=== PATIENT | female | born 1935 | race Caucasian/White ===

== ENCOUNTER 2017-08-06 09:24 | Inpatient (IN) | payer MEDICARE, OTHER ==
[~2017-08-06] VITALS: Ht 170.2 cm; Wt 84.4 kg
[~2017-08-06 09:24] MED LIST: ALBU8.5H8 IH; ALPR-324 PO; CARV-49 PO; CHOL2000 PO; ENAL10TA78 PO; FURO20TA4 PO; HYDR-565 PO; HYDR25TA4 PO; LEVO150T8 PO; METO10TA3 PO; OMEG10006 PO; ONDA4TAB9 SL; PANT-47 PO; POTA10TA36 PO; PRAV20TA4 PO; TEMA15CA5 PO; VITA400C21 PO; WARF4TAB69 PO; [UNRECOGNIZED DRUG - CODE] PO
[2017-08-06 09:58] LABS: BASOPHILS % (AUTO) 0.3 % (0-1); EOSINOPHILS # (AUTO) 0.3 X10'3 (0-0.9); EOSINOPHILS % (AUTO) 5.4 % (0-6); HEMATOCRIT 41.6 % (35.0-45.0); LYMPHOCYTES # (AUTO) 1.4 X10'3 (1.1-4.8); LYMPHOCYTES % (AUTO) 22.4 % (21-51); MEAN CORPUSCULAR HEMOGLOBIN 32.1 PG (27.0-31.0); MEAN CORPUSCULAR HGB CONC 33.7 % (33.0-36.5); MEAN CORPUSCULAR VOLUME 95.1 FL (78-98); MEAN PLATELET VOLUME 8.1 FL (7.4-10.4); MONOCYTES # (AUTO) 0.6 X10'3 (0-0.9); MONOCYTES % (AUTO) 9.4 % (2-12); NEUTROPHILS # (AUTO) 3.8 X10'3 (1.8-7.7); NEUTROPHILS % (AUTO) 62.5 % (42-75); PLATELET COUNT 186 X10'3 (140-440); RED BLOOD COUNT 4.37 X10'6 (4.20-5.60); RED CELL DISTRIBUTION WIDTH 15.7 % (11.5-14.5); WHITE BLOOD COUNT 6.1 X10'3 (4.5-11.0)
[2017-08-06] MEDS ORDERED: furosemide 10 MG/1 ML 10ml inj IV ONE (10:05)
[2017-08-06 10:11] LABS: INR 1.1 INR; PARTIAL THROMBOPLASTIN TIME 28 SECONDS (22-32); PROTHROMBIN TIME 11.8 SECONDS (9.0-12.0)
[2017-08-06 10:15] LABS: ALANINE AMINOTRANSFERASE 18 U/L (12-78); ALBUMIN 3.6 G/DL (3.4-5.0); ALBUMIN/GLOBULIN RATIO 0.7 (1.1-1.5); ALKALINE PHOSPHATASE 106 IU/L (46-116); ANION GAP 4 (8-16); ASPARTATE AMINO TRANSFERASE 31 U/L (10-37); BILIRUBIN,TOTAL 0.7 MG/DL (0.1-1.0); BLOOD UREA NITROGEN 15 MG/DL (7-18); BUN/CREATININE RATIO 20.5 (6.6-38.0); CALCIUM 8.7 MG/DL (8.5-10.1); CHLORIDE 98 MMOL/L (99-107); CREATININE 0.73 MG/DL (0.40-0.90); GLUCOSE 128 MG/DL (70-104); POTASSIUM 3.2 MMOL/L (3.5-5.1); SODIUM 138 MMOL/L (135-145); TOTAL PROTEIN 8.7 G/DL (6.4-8.2); eGFR 77 ML/MIN
[2017-08-06] MEDS ORDERED: ALPRAZolam 0.25mg tablet PO ONE (11:05)
[2017-08-06] MEDS ORDERED: CefTRIAXone 2gm/D5W 50ml 50 ML IV ONE (11:40)
[2017-08-06] MEDS ORDERED: ATOR40TA71 PO (12:51)
[2017-08-06] MEDS ORDERED: CLOP75TA15 PO (12:51)
[2017-08-06] MEDS ORDERED: PANT20TA3 PO (12:51)
[2017-08-06] MEDS ORDERED: IPRA3AMP9 IH (12:51)
[2017-08-06] MEDS ORDERED: HYDR-565 PO (12:51)
[2017-08-06] MEDS ORDERED: TRAZ-146 PO (12:51)
[2017-08-06] MEDS ORDERED: FURO40TA4 PO (12:51)
[2017-08-06] MEDS ORDERED: ASPI81TA52 PO (12:51)
[2017-08-06] MEDS ORDERED: LEVA0.6319 NEB (12:51)
[2017-08-06] MEDS ORDERED: LEVO125T8 PO (12:51)
[2017-08-06] MEDS ORDERED: CARV-50 PO (12:51)
[2017-08-06] MEDS ORDERED: BUDE0.5A11 NEB (12:51)
[2017-08-06] MEDS ORDERED: BUME1TAB4 PO (12:51)
[2017-08-06] MEDS ORDERED: ALPR-385 PO (12:51)
[2017-08-06] MEDS ORDERED: diphenhydrAMINE 50 mg/ml inj IV PRN (16:00)
[2017-08-06] MEDS ORDERED: acetaminophen 325mg tablet PO PRN (16:00)
[2017-08-06] MEDS ORDERED: bisacodyl 10mg suppository rectal RC PRN (16:00)
[2017-08-06] MEDS ORDERED: acetaminophen 650mg rectal suppository RC PRN (16:00)
[2017-08-06] MEDS ORDERED: HYDROmorphone inj. 0.5 MG/0.5 ML DISP.SYRIN IV PRN ×3 (16:00→22:10)
[2017-08-06] MEDS ORDERED: diphenhydrAMINE 25mg capsule PO PRN (16:00)
[2017-08-06] MEDS ORDERED: mag hydrox/Alum hydrox/simeth 30ml oral suspension PO PRN (16:00)
[2017-08-06] MEDS ORDERED: magnesium hydroxide 30ml (MOM) UD suspension PO PRN (16:00)
[2017-08-06] MEDS ORDERED: metoclopramide 5 mg/ml inj IV PRN (16:00)
[2017-08-06] MEDS ORDERED: HYDROcodone/acetaminophen 10/325mg tab PO PRN (16:00)
[2017-08-06] MEDS ORDERED: morphine 4 MG/ML inj SYRINge IV PRN ×2 (16:00)
[2017-08-06] MEDS ORDERED: ondansetron/PF 4mg/2ml inj IV PRN (16:00)
[2017-08-06] MEDS ORDERED: potassium Cl 20 mEq SR tablet PO PRN (16:05)
[2017-08-06] MEDS ORDERED: CefTRIAXone/D5W-Rocephin 1gm 50 ML IV SCH (16:05)
[2017-08-06] MEDS ORDERED: potassium Cl 40MEQ/NS 500ml 500 ML IV PRN ×2 (16:05)
[2017-08-06] MEDS: ipratropium/albuterol 3ml nebule IH SCH ×2 (17:15→23:07)
[2017-08-06 17:22] LABS: HEMOGLOBIN A1C 5.6 % (4.5-6.2)
[2017-08-06] MEDS: ALPRAZolam 0.5mg tablet PO SCH (17:22)
[2017-08-06] MEDS: azithromycin/NS 500mg/250ml 250 ML IV SCH (17:22)
[2017-08-06] MEDS: furosemide 40mg/4ml inj IV SCH (17:25)
[2017-08-06] MEDS: docusate sod 100mg capsule PO SCH (20:15)
[2017-08-06] MEDS: carVEDilol 12.5mg tablet PO SCH (20:15)
[2017-08-06] MEDS: methylPREDNISolone sod succ 125mg/2ml vial IV SCH (20:18)
[2017-08-06] MEDS: heparin, porcine 5000 units/ml vial SQ SCH (20:20)
[2017-08-06 21:00] VITALS: BP 111/72
[2017-08-06] MEDS ORDERED: HYDROmorphone 2mg tablet PO ONE (22:10)
[2017-08-06] MEDS ORDERED: ALPRAZolam 0.5mg tablet PO ONE (22:10)
[2017-08-06] MEDS: traZODone 50mg tablet PO SCH (23:13)
[2017-08-07 00:59] VITALS: BP 145/84
[2017-08-07] MEDS: potassium Cl 20 mEq SR tablet PO PRN ×3 (01:30→05:46)
[2017-08-07] MEDS ORDERED: HYDROmorphone 1 mg/ml syringe ONE ×2 (01:57→21:38)
[2017-08-07 07:00] VITALS: BP 137/86
[2017-08-07] MEDS: levoTHYROXINE 125mcg tablet PO SCH (08:00)
[2017-08-07] MEDS: aspirin 81mg tablet.DR PO SCH (08:00)
[2017-08-07] MEDS: metoclopramide 10mg tablet PO SCH (08:00)
[2017-08-07] MEDS: pantoprazole 40mg Tablet.DR PO SCH (08:01)
[2017-08-07] MEDS: furosemide 40mg/4ml inj IV SCH (08:01)
[2017-08-07] MEDS: methylPREDNISolone sod succ 125mg/2ml vial IV SCH ×2 (08:01→20:35)
[2017-08-07] MEDS: carVEDilol 12.5mg tablet PO SCH ×2 (08:01→20:38)
[2017-08-07] MEDS: docusate sod 100mg capsule PO SCH ×2 (08:01→20:34)
[2017-08-07] MEDS: atorvastatin 20mg tablet PO SCH (08:01)
[2017-08-07] MEDS: clopidogrel 75mg tablet PO SCH (08:01)
[2017-08-07] MEDS: heparin, porcine 5000 units/ml vial SQ SCH ×2 (08:02→20:34)
[2017-08-07] MEDS: HYDROcodone/acetaminophen 5mg/325mg tablet PO PRN ×3 (08:02→17:13)
[2017-08-07] MEDS: CefTRIAXone/D5W-Rocephin 1gm 50 ML IV SCH (08:03)
[2017-08-07] MEDS: ALPRAZolam 0.5mg tablet PO SCH ×2 (08:07→17:09)
[2017-08-07] MEDS: ipratropium/albuterol 3ml nebule IH SCH ×3 (09:31→21:37)
[2017-08-07] MEDS: azithromycin/NS 500mg/250ml 250 ML IV SCH (09:35)
[2017-08-07 09:56] LABS: ALANINE AMINOTRANSFERASE 17 U/L (12-78); ALBUMIN 3.1 G/DL (3.4-5.0); ALBUMIN/GLOBULIN RATIO 0.6 (1.1-1.5); ALKALINE PHOSPHATASE 96 IU/L (46-116); ANION GAP 7 (8-16); ASPARTATE AMINO TRANSFERASE 27 U/L (10-37); BILIRUBIN,TOTAL 0.5 MG/DL (0.1-1.0); BLOOD UREA NITROGEN 15 MG/DL (7-18); CHLORIDE 99 MMOL/L (99-107); CREATININE 0.94 MG/DL (0.40-0.90); GLUCOSE 188 MG/DL (70-104); SODIUM 141 MMOL/L (135-145); TOTAL CARBON DIOXIDE 35.4 MMOL/L (24-32); TOTAL PROTEIN 7.9 G/DL (6.4-8.2); eGFR 57 ML/MIN
[2017-08-07 11:00] VITALS: BP 108/57
[2017-08-07] MEDS: nitroGLYCERIN 0.1mg/hour patch TD SCH (11:23)
[2017-08-07 16:15] VITALS: BP 214/159
[2017-08-07 17:18] VITALS: BP 154/64
[2017-08-07 18:00] VITALS: BP 120/70
[2017-08-07] MEDS: traZODone 50mg tablet PO SCH (20:54)
[2017-08-08] VITALS: BP 132/70
[2017-08-08] MEDS ORDERED: HYDROmorphone 1 mg/ml syringe ONE (01:56)
[2017-08-08] MEDS: temazepam 15mg capsule PO PRN (02:24)
[2017-08-08] MEDS: HYDROcodone/acetaminophen 5mg/325mg tablet PO PRN (04:30)
[2017-08-08] MEDS: ipratropium/albuterol 3ml nebule IH SCH ×3 (07:07→20:58)
[2017-08-08 07:17] VITALS: BP 157/74
[2017-08-08] MEDS: CefTRIAXone/D5W-Rocephin 1gm 50 ML IV SCH (07:47)
[2017-08-08] MEDS: ALPRAZolam 0.5mg tablet PO SCH ×2 (07:48→16:14)
[2017-08-08] MEDS: clopidogrel 75mg tablet PO SCH (07:48)
[2017-08-08] MEDS: levoTHYROXINE 125mcg tablet PO SCH (07:48)
[2017-08-08] MEDS: carVEDilol 12.5mg tablet PO SCH ×2 (07:48→20:20)
[2017-08-08] MEDS: aspirin 81mg tablet.DR PO SCH (07:48)
[2017-08-08] MEDS: nitroGLYCERIN 0.1mg/hour patch TD SCH (07:48)
[2017-08-08] MEDS: atorvastatin 20mg tablet PO SCH (07:48)
[2017-08-08] MEDS: methylPREDNISolone sod succ 125mg/2ml vial IV SCH ×2 (07:49→20:20)
[2017-08-08] MEDS: docusate sod 100mg capsule PO SCH ×2 (07:49→20:21)
[2017-08-08] MEDS: metoclopramide 10mg tablet PO SCH (07:49)
[2017-08-08] MEDS: heparin, porcine 5000 units/ml vial SQ SCH ×2 (07:49→20:20)
[2017-08-08] MEDS: pantoprazole 40mg Tablet.DR PO SCH (07:49)
[2017-08-08] MEDS: furosemide 40mg/4ml inj IV SCH (07:50)
[2017-08-08] MEDS: emollient combination-Eucerin 250 ML LOTION TP SCH (07:50)
[2017-08-08] MEDS: azithromycin/NS 500mg/250ml 250 ML IV SCH (08:33)
[2017-08-08 12:52] VITALS: BP 151/73
[2017-08-08 18:00] VITALS: BP 129/60
[2017-08-08] MEDS: traZODone 50mg tablet PO SCH (20:21)
[2017-08-08] MEDS: lactobacillus rhamnosus 10,000 MMU CELLS/CAPSULE PO SCH (20:21)
[2017-08-09] VITALS: BP 151/87
[2017-08-09] MEDS: temazepam 15mg capsule PO PRN ×2 (01:41→22:16)
[2017-08-09] MEDS: HYDROcodone/acetaminophen 5mg/325mg tablet PO PRN ×3 (01:46→20:00)
[2017-08-09 05:43] LABS: CLARITY,URINE CLEAR (Clear); COLOR,URINE YELLOW (Yellow); GLUCOSE, URINE NEGATIVE (Neg); KETONES,URINE NEGATIVE (Neg); LEUKOCYTE ESTERASE ,URINE NEGATIVE (Neg); NITRITES, URINE NEGATIVE (Neg); OCCULT BLOOD,URINE NEGATIVE (Neg); PROTEIN,URINE NEGATIVE (Neg); UROBILINOGEN,URINE 0.2 E.U/dL (0.2-1.0)
[2017-08-09 05:44] LABS: UA COLLECTION TYPE CLN CATCH MIDSTREAM
[2017-08-09 07:29] VITALS: BP 172/109
[2017-08-09 07:30] LABS: BASOPHILS % (AUTO) 0.2 % (0-1); EOSINOPHILS % (AUTO) 0.3 % (0-6); HEMATOCRIT 42.1 % (35.0-45.0); HEMOGLOBIN 14.1 g/dl (12.0-16.0); LYMPHOCYTES # (AUTO) 1.2 X10'3 (1.1-4.8); LYMPHOCYTES % (AUTO) 13.6 % (21-51); MEAN CORPUSCULAR HEMOGLOBIN 31.9 PG (27.0-31.0); MEAN CORPUSCULAR HGB CONC 33.4 % (33.0-36.5); MEAN CORPUSCULAR VOLUME 95.6 FL (78-98); MEAN PLATELET VOLUME 8.4 FL (7.4-10.4); MONOCYTES # (AUTO) 0.4 X10'3 (0-0.9); MONOCYTES % (AUTO) 4.2 % (2-12); NEUTROPHILS % (AUTO) 81.7 % (42-75); PLATELET COUNT 197 X10'3 (140-440); RED CELL DISTRIBUTION WIDTH 15.5 % (11.5-14.5); WHITE BLOOD COUNT 8.6 X10'3 (4.5-11.0)
[2017-08-09 07:44] LABS: ALANINE AMINOTRANSFERASE 27 U/L (12-78); ALBUMIN 2.8 G/DL (3.4-5.0); ALBUMIN/GLOBULIN RATIO 0.6 (1.1-1.5); ALKALINE PHOSPHATASE 94 IU/L (46-116); ANION GAP 4 (8-16); ASPARTATE AMINO TRANSFERASE 32 U/L (10-37); BILIRUBIN,TOTAL 0.3 MG/DL (0.1-1.0); BLOOD UREA NITROGEN 26 MG/DL (7-18); BUN/CREATININE RATIO 28.9 (6.6-38.0); CALCIUM 8.4 MG/DL (8.5-10.1); CHLORIDE 101 MMOL/L (99-107); GLUCOSE 148 MG/DL (70-104); POTASSIUM 3.8 MMOL/L (3.5-5.1); SODIUM 141 MMOL/L (135-145); TOTAL CARBON DIOXIDE 35.9 MMOL/L (24-32); TOTAL PROTEIN 7.4 G/DL (6.4-8.2); eGFR 60 ML/MIN
[2017-08-09] MEDS: levoTHYROXINE 125mcg tablet PO SCH (08:00)
[2017-08-09] MEDS: furosemide 40mg/4ml inj IV SCH (09:24)
[2017-08-09] MEDS: methylPREDNISolone sod succ 125mg/2ml vial IV SCH ×2 (09:25→19:55)
[2017-08-09] MEDS: docusate sod 100mg capsule PO SCH ×2 (09:25→20:01)
[2017-08-09] MEDS: CefTRIAXone/D5W-Rocephin 1gm 50 ML IV SCH (09:25)
[2017-08-09] MEDS: aspirin 81mg tablet.DR PO SCH (09:26)
[2017-08-09] MEDS: lactobacillus rhamnosus 10,000 MMU CELLS/CAPSULE PO SCH ×2 (09:26→20:00)
[2017-08-09] MEDS: carVEDilol 12.5mg tablet PO SCH ×2 (09:26→19:58)
[2017-08-09] MEDS: atorvastatin 20mg tablet PO SCH (09:27)
[2017-08-09] MEDS: clopidogrel 75mg tablet PO SCH (09:28)
[2017-08-09] MEDS: pantoprazole 40mg Tablet.DR PO SCH (09:28)
[2017-08-09] MEDS: metoclopramide 10mg tablet PO SCH (09:29)
[2017-08-09] MEDS: azithromycin 250mg tablet PO SCH (09:30)
[2017-08-09] MEDS: heparin, porcine 5000 units/ml vial SQ SCH (09:35)
[2017-08-09] MEDS: lisinopril 20mg tablet PO SCH (09:36)
[2017-08-09] MEDS: nitroGLYCERIN 0.1mg/hour patch TD SCH (09:36)
[2017-08-09] MEDS: ALPRAZolam 0.5mg tablet PO SCH ×2 (09:37→17:16)
[2017-08-09] MEDS: emollient combination-Eucerin 250 ML LOTION TP SCH (09:52)
[2017-08-09] MEDS: ipratropium/albuterol 3ml nebule IH SCH ×3 (10:14→23:11)
[2017-08-09 11:30] VITALS: BP 112/64
[2017-08-09 18:00] VITALS: BP 108/65
[2017-08-09] MEDS: enoxaparin 80mg/0.8ml syringe SUBCUT SCH (19:56)
[2017-08-09] MEDS: cloNIDine 0.1 mg tablet PO SCH (19:59)
[2017-08-09] MEDS: traZODone 50mg tablet PO SCH (22:08)
[2017-08-10] VITALS: BP 110/62
[2017-08-10] MEDS: HYDROcodone/acetaminophen 5mg/325mg tablet PO PRN ×2 (04:29→14:45)
[2017-08-10] MEDS: ipratropium/albuterol 3ml nebule IH SCH (07:25)
[2017-08-10 07:39] VITALS: BP 147/78
[2017-08-10] MEDS: furosemide 40mg/4ml inj IV SCH (08:49)
[2017-08-10] MEDS: cloNIDine 0.1 mg tablet PO SCH (08:50)
[2017-08-10] MEDS: CefTRIAXone/D5W-Rocephin 1gm 50 ML IV SCH (08:50)
[2017-08-10] MEDS: methylPREDNISolone sod succ 125mg/2ml vial IV SCH (08:50)
[2017-08-10] MEDS: aspirin 81mg tablet.DR PO SCH (08:51)
[2017-08-10] MEDS: docusate sod 100mg capsule PO SCH (08:51)
[2017-08-10] MEDS: lactobacillus rhamnosus 10,000 MMU CELLS/CAPSULE PO SCH (08:51)
[2017-08-10] MEDS: carVEDilol 12.5mg tablet PO SCH (08:51)
[2017-08-10] MEDS: atorvastatin 20mg tablet PO SCH (08:51)
[2017-08-10] MEDS: clopidogrel 75mg tablet PO SCH (08:52)
[2017-08-10] MEDS: metoclopramide 10mg tablet PO SCH (08:52)
[2017-08-10] MEDS: azithromycin 250mg tablet PO SCH (08:52)
[2017-08-10] MEDS: lisinopril 20mg tablet PO SCH (08:52)
[2017-08-10] MEDS: pantoprazole 40mg Tablet.DR PO SCH (08:52)
[2017-08-10] MEDS: emollient combination-Eucerin 250 ML LOTION TP SCH (08:53)
[2017-08-10] MEDS: nitroGLYCERIN 0.1mg/hour patch TD SCH (08:53)
[2017-08-10] MEDS: enoxaparin 80mg/0.8ml syringe SUBCUT SCH (08:53)
[2017-08-10] MEDS: ALPRAZolam 0.5mg tablet PO SCH (08:54)
[2017-08-10] MEDS: levoTHYROXINE 125mcg tablet PO SCH (08:55)
[2017-08-10 11:00] VITALS: BP 131/71
== END 2017-08-10 15:30 | disposition home or self-care (01) | DRG 291 ==
LOC: ER 09:25 → ED HOLD 15:59 → SUR 3N 20:50
PROVIDERS: ADMIT Family Medicine; ATTEND Family Medicine
DX: I50.23 Acute on chronic systolic (congestive) heart failure (principal); J96.21 Acute and chronic respiratory failure with hypoxia; J44.1 Chronic obstructive pulmonary disease with (acute) exacerbation; L03.115 Cellulitis of right lower limb; E87.6 Hypokalemia; K31.9 Disease of stomach and duodenum, unspecified; L30.9 Dermatitis, unspecified; Z99.81 Dependence on supplemental oxygen; Z88.1 Allergy status to other antibiotic agents; Z88.8 Allergy status to other drugs, medicaments and biological substances; Z79.899 Other long term (current) drug therapy; Z79.01 Long term (current) use of anticoagulants; Z82.49 Family history of ischemic heart disease and other diseases of the circulatory system; Z80.9 Family history of malignant neoplasm, unspecified
CPT/HCPCS: 36415; 71045; 80053; 81003; 83036; 83735; 83880; 84484; 85025; 85610; 85730; 87070; 93005; 94640; 94760; 96365; 96375; 99285; J0456; J0696; J1170; J1644; J1650; J1940; J2930; J7030; J8597; Q0163

== ENCOUNTER 2017-08-12 07:23 | Emergency (ER) | payer MEDICARE, OTHER ==
[~2017-08-12] VITALS: Ht 170.2 cm; Wt 89.0 kg
[~2017-08-12 07:23] MED LIST changes: -ALBU8.5H8 IH; -ALPR-324 PO; +ALPR-385 PO; +ASPI81TA52 PO; +ATOR40TA71 PO; +BUDE0.5A11 NEB; -CARV-49 PO; +CARV-50 PO; -CHOL2000 PO; +CLOP75TA15 PO; -ENAL10TA78 PO; -FURO20TA4 PO; -HYDR25TA4 PO; +IPRA3AMP9 IH; +LEVA0.6319 NEB; +LEVO125T8 PO; -LEVO150T8 PO; -OMEG10006 PO; -ONDA4TAB9 SL; -PANT-47 PO; -POTA10TA36 PO; -PRAV20TA4 PO; -TEMA15CA5 PO; +TRAZ-146 PO; -VITA400C21 PO; -WARF4TAB69 PO; -[UNRECOGNIZED DRUG - CODE] PO
[2017-08-12] MEDS ORDERED: aspirin 81mg tab.chew PO ONE (07:55)
[2017-08-12 08:25] LABS: BASOPHILS % (AUTO) 0.2 % (0-1); EOSINOPHILS # (AUTO) 0.2 X10'3 (0-0.9); EOSINOPHILS % (AUTO) 2.4 % (0-6); HEMOGLOBIN 13.6 g/dl (12.0-16.0); LYMPHOCYTES # (AUTO) 1.8 X10'3 (1.1-4.8); LYMPHOCYTES % (AUTO) 23.3 % (21-51); MEAN CORPUSCULAR HEMOGLOBIN 32.2 PG (27.0-31.0); MEAN CORPUSCULAR HGB CONC 34.1 % (33.0-36.5); MEAN CORPUSCULAR VOLUME 94.7 FL (78-98); MEAN PLATELET VOLUME 8.3 FL (7.4-10.4); MONOCYTES # (AUTO) 0.8 X10'3 (0-0.9); MONOCYTES % (AUTO) 10.9 % (2-12); NEUTROPHILS # (AUTO) 4.8 X10'3 (1.8-7.7); NEUTROPHILS % (AUTO) 63.2 % (42-75); PLATELET COUNT 203 X10'3 (140-440); RED BLOOD COUNT 4.22 X10'6 (4.20-5.60); WHITE BLOOD COUNT 7.6 X10'3 (4.5-11.0)
[2017-08-12 08:43] LABS: ALANINE AMINOTRANSFERASE 65 U/L (12-78); ALBUMIN 3.1 G/DL (3.4-5.0); ALBUMIN/GLOBULIN RATIO 0.7 (1.1-1.5); ALKALINE PHOSPHATASE 95 IU/L (46-116); ANION GAP 5 (8-16); ASPARTATE AMINO TRANSFERASE 63 U/L (10-37); BILIRUBIN,TOTAL 0.3 MG/DL (0.1-1.0); BLOOD UREA NITROGEN 35 MG/DL (7-18); BUN/CREATININE RATIO 38.9 (6.6-38.0); CALCIUM 8.3 MG/DL (8.5-10.1); CHLORIDE 99 MMOL/L (99-107); GLUCOSE 137 MG/DL (70-104); POTASSIUM 3.5 MMOL/L (3.5-5.1); SODIUM 141 MMOL/L (135-145); TOTAL CARBON DIOXIDE 37.3 MMOL/L (24-32); TOTAL PROTEIN 7.4 G/DL (6.4-8.2); eGFR 60 ML/MIN
[2017-08-12 08:49] LABS: MAGNESIUM 2.2 MG/DL (1.5-2.4)
[2017-08-12 11:15] VITALS: BP 138/70
== END 2017-08-12 12:27 | disposition home or self-care (01) ==
LOC: ER 07:23
DX: R06.02 Shortness of breath (principal); I70.0 Atherosclerosis of aorta; I51.7 Cardiomegaly; J90 Pleural effusion, not elsewhere classified; I48.91 Unspecified atrial fibrillation; I50.9 Heart failure, unspecified; J44.9 Chronic obstructive pulmonary disease, unspecified; Z88.1 Allergy status to other antibiotic agents; Z79.82 Long term (current) use of aspirin; Z79.899 Other long term (current) drug therapy
CPT/HCPCS: 36415; 71045; 80053; 83735; 83880; 84484; 85025; 93005; 99285

== ENCOUNTER 2017-10-28 08:30 | Emergency (ER) | payer MEDICARE ==
[~2017-10-28] VITALS: Ht 170.2 cm; Wt 9.1 kg
[~2017-10-28 08:30] MED LIST changes: -TRAZ-146 PO; +TRAZ-219 PO
[2017-10-28] MEDS ORDERED: methylPREDNISolone sod succ 125mg/2ml vial IV ONE (08:50)
[2017-10-28] MEDS ORDERED: normal saline 1000ML IV soln IVB ONE (08:50)
[2017-10-28] MEDS ORDERED: furosemide 10 MG/1 ML 10ml inj IV ONE (08:50)
[2017-10-28] MEDS ORDERED: ipratropium/albuterol 3ml nebule NEB ONE (08:50)
[2017-10-28] MEDS ORDERED: verapamil 2.5 mg/ml inj IV ONE (09:05)
[2017-10-28 09:15] LABS: ABG BASE EXCESS 6.7 mmol/L (-2.0-3.0); ABG HCO3 32.1 mmol/L (22.0-26.0); ABG OXYGEN SATURATION 96.9 % (95-98); ABG PCO2 (T) 48.9 mmHg (32.0-45.0); ABG PH (T) 7.435 (7.350-7.450); ABG PO2 (T) 89.4 mmHg (83-108); ALLEN'S TEST Positive; FCOHb 1.8 % (0.5-1.5); FLOW 2 L/min; FO2Hb 95.2 % (94-100); RESPIRATORY RATE (OBSERVED) 20 b/min; TOTAL HEMOGLOBIN 13.7 G/dl (12.0-16.0)
[2017-10-28 09:20] LABS: BASOPHILS % (AUTO) 0.5 % (0-1); EOSINOPHILS # (AUTO) 0.2 X10'3 (0-0.9); EOSINOPHILS % (AUTO) 3.6 % (0-6); HEMATOCRIT 42.1 % (35.0-45.0); LYMPHOCYTES # (AUTO) 1.3 X10'3 (1.1-4.8); LYMPHOCYTES % (AUTO) 20.6 % (21-51); MEAN CORPUSCULAR HEMOGLOBIN 31.6 PG (27.0-31.0); MEAN CORPUSCULAR HGB CONC 33.4 % (33.0-36.5); MEAN CORPUSCULAR VOLUME 94.8 FL (78-98); MEAN PLATELET VOLUME 8.9 FL (7.4-10.4); MONOCYTES # (AUTO) 0.6 X10'3 (0-0.9); MONOCYTES % (AUTO) 9.6 % (2-12); NEUTROPHILS # (AUTO) 4.3 X10'3 (1.8-7.7); NEUTROPHILS % (AUTO) 65.7 % (42-75); PLATELET COUNT 175 X10'3 (140-440); RED BLOOD COUNT 4.44 X10'6 (4.20-5.60); RED CELL DISTRIBUTION WIDTH 15.4 % (11.5-14.5); WHITE BLOOD COUNT 6.5 X10'3 (4.5-11.0)
[2017-10-28 10:08] LABS: ALANINE AMINOTRANSFERASE 15 U/L (12-78); ALBUMIN 3.4 G/DL (3.4-5.0); ALBUMIN/GLOBULIN RATIO 0.7 (1.1-1.5); ALKALINE PHOSPHATASE 98 IU/L (46-116); ANION GAP 6 (8-16); ASPARTATE AMINO TRANSFERASE 26 U/L (10-37); BILIRUBIN,TOTAL 0.9 MG/DL (0.1-1.0); BLOOD UREA NITROGEN 17 MG/DL (7-18); BUN/CREATININE RATIO 22.4 (6.6-38.0); CALCIUM 8.9 MG/DL (8.5-10.1); CHLORIDE 99 MMOL/L (99-107); CREATININE 0.76 MG/DL (0.40-0.90); GLUCOSE 128 MG/DL (70-104); POTASSIUM 3.2 MMOL/L (3.5-5.1); SODIUM 142 MMOL/L (135-145); eGFR 73 ML/MIN
[2017-10-28] MEDS ORDERED: PRED20TA PO (10:52)
[2017-10-28] MEDS ORDERED: GUAI120015 PO (10:53)
[2017-10-28] MEDS ORDERED: CEPH-571 PO (11:12)
[2017-10-28 12:16] VITALS: BP 135/55
== END 2017-10-28 12:19 | disposition home or self-care (01) ==
LOC: ER 08:31
DX: J44.1 Chronic obstructive pulmonary disease with (acute) exacerbation (principal); I48.91 Unspecified atrial fibrillation; R60.9 Edema, unspecified; L03.116 Cellulitis of left lower limb; L03.115 Cellulitis of right lower limb; R00.0 Tachycardia, unspecified; I11.0 Hypertensive heart disease with heart failure; I50.9 Heart failure, unspecified; F19.10 Other psychoactive substance abuse, uncomplicated; Z88.1 Allergy status to other antibiotic agents; Z79.82 Long term (current) use of aspirin; Z79.899 Other long term (current) drug therapy; Z79.01 Long term (current) use of anticoagulants; Z99.81 Dependence on supplemental oxygen; Z72.0 Tobacco use
CPT/HCPCS: 36415; 36600; 71045; 80053; 82803; 83605; 83880; 84145; 84484; 85018; 85025; 87040; 93005; 94640; 94760; 96374; 96375; 99285; J1940; J2930; J7030

== ENCOUNTER 2018-04-07 13:51 | Emergency (ER) | payer MEDICARE, OTHER ==
[~2018-04-07] VITALS: Ht 170.2 cm; Wt 99.0 kg
[~2018-04-07 13:51] MED LIST changes: -ALPR-385 PO; -ASPI81TA52 PO; +ATR0.5NEB NEB; -BUDE0.5A11 NEB; -CARV-50 PO; +CARV3.122 PO; -CLOP75TA15 PO; +DABI150C PO; +DET2LAC PO; +FLUT1AER PO; +FURO40TA4 PO; +HYDR-4383 PO; -HYDR-565 PO; -IPRA3AMP9 IH; -LEVA0.6319 NEB; +LEVO100T PO; -LEVO125T8 PO; +LEVO25TA7 PO; +LORA0.5T PO; -METO10TA3 PO; +OMEP40CA37 PO; +POTA10TA19 PO; +TEMA15CA5 PO; +[UNRECOGNIZED DRUG - CODE] NEB
[2018-04-07] MEDS ORDERED: ipratropium/albuterol 3ml nebule NEB ONE (14:15)
[2018-04-07] MEDS ORDERED: methylPREDNISolone sod succ 125mg/2ml vial IV ONE (14:15)
[2018-04-07] MEDS ORDERED: albuterol 2.5 MG/3 ML nebule NEB ONE ×2 (14:15→16:35)
[2018-04-07 14:47] LABS: BASOPHILS % (AUTO) 0.1 % (0-1); EOSINOPHILS # (AUTO) 0.1 X10'3 (0-0.9); HEMATOCRIT 39.2 % (35.0-45.0); HEMOGLOBIN 12.9 g/dl (12.0-16.0); LYMPHOCYTES # (AUTO) 1.2 X10'3 (1.1-4.8); LYMPHOCYTES % (AUTO) 15.2 % (21-51); MEAN CORPUSCULAR HEMOGLOBIN 30.5 PG (27.0-31.0); MEAN CORPUSCULAR HGB CONC 33.1 % (33.0-36.5); MEAN CORPUSCULAR VOLUME 92.1 FL (78-98); MEAN PLATELET VOLUME 8.2 FL (7.4-10.4); MONOCYTES # (AUTO) 0.8 X10'3 (0-0.9); NEUTROPHILS # (AUTO) 5.7 X10'3 (1.8-7.7); NEUTROPHILS % (AUTO) 73.7 % (42-75); PLATELET COUNT 140 X10'3 (140-440); RED BLOOD COUNT 4.25 X10'6 (4.20-5.60); RED CELL DISTRIBUTION WIDTH 15.2 % (11.5-14.5); WHITE BLOOD COUNT 7.7 X10'3 (4.5-11.0)
[2018-04-07 15:02] LABS: ALANINE AMINOTRANSFERASE 27 U/L (12-78); ALBUMIN 2.9 G/DL (3.4-5.0); ALBUMIN/GLOBULIN RATIO 0.5 (1.1-1.5); ALKALINE PHOSPHATASE 114 IU/L (46-116); ANION GAP 4 (8-16); ASPARTATE AMINO TRANSFERASE 36 U/L (10-37); BILIRUBIN,TOTAL 0.7 MG/DL (0.1-1.0); BLOOD UREA NITROGEN 20 MG/DL (7-18); CALCIUM 8.5 MG/DL (8.5-10.1); CHLORIDE 97 MMOL/L (99-107); CREATININE 0.74 MG/DL (0.40-0.90); GLUCOSE 125 MG/DL (70-104); SODIUM 137 MMOL/L (135-145); TOTAL CARBON DIOXIDE 35.8 MMOL/L (24-32); TOTAL PROTEIN 8.2 G/DL (6.4-8.2); eGFR 75 ML/MIN
[2018-04-07 15:03] LABS: INR 1.3 INR; PARTIAL THROMBOPLASTIN TIME 36 SECONDS (22-32); PROTHROMBIN TIME 12.6 SECONDS (9.0-12.0)
[2018-04-07] MEDS ORDERED: iohexol 350MG/ML 100ml bottle IV ONE (15:08)
[2018-04-07 15:16] LABS: D-DIMER 3.49 MG/L FEU (0-0.50)
--- NOTE | 2018-04-07 15:18 | NUR ---
PT TO CT
[2018-04-07 16:24] VITALS: BP 105/62
--- NOTE | 2018-04-07 16:35 | NUR ---
PT UP TO BEDSIDE COMMODE WITH MIN ASSIST, ON 3LITERS NASAL CANNULA SATS REMAIN 96-97%, DR MARKS AT BEDSIDE TO REEVALUATE PT, PLAN TO DC BACK TO [facility], FAMILY AT BEDSIDE
[2018-04-07] MEDS ORDERED: LORazepam 1 MG tablet PO ONE (17:50)
[2018-04-07] MEDS ORDERED: LORazepam 0.5 MG tablet PO ONE (17:55)
== END 2018-04-07 18:12 | disposition home or self-care (01) ==
LOC: ER 13:51
DX: J44.1 Chronic obstructive pulmonary disease with (acute) exacerbation (principal); I48.91 Unspecified atrial fibrillation; I50.9 Heart failure, unspecified; Z90.49 Acquired absence of other specified parts of digestive tract; Z90.710 Acquired absence of both cervix and uterus; Z98.84 Bariatric surgery status; Z88.1 Allergy status to other antibiotic agents; Z79.899 Other long term (current) drug therapy; Z99.81 Dependence on supplemental oxygen; Z91.018 Allergy to other foods
CPT/HCPCS: 36415; 71045; 71275; 80053; 84484; 85025; 85379; 85610; 85730; 93005; 94640; 94760; 96374; 99284; J2930; Q9967

== ENCOUNTER 2018-04-14 16:40 | Outpatient (CLI) | payer OTHER ==
[2018-04-14] MEDS ORDERED: iohexol 300mg/ml 100ml inj. ONE (16:53)
== END 2018-04-14 23:59 | disposition home or self-care (01) ==
LOC: 64 CT 16:40
PROVIDERS: ATTEND Internal Medicine
DX: K57.30 Diverticulosis of large intestine without perforation or abscess without bleeding (principal); K40.20 Bilateral inguinal hernia, without obstruction or gangrene, not specified as recurrent; I51.7 Cardiomegaly; M41.80 Other forms of scoliosis, site unspecified; I70.0 Atherosclerosis of aorta; I25.2 Old myocardial infarction; J44.9 Chronic obstructive pulmonary disease, unspecified; I11.0 Hypertensive heart disease with heart failure; I50.9 Heart failure, unspecified; Z79.899 Other long term (current) drug therapy; Z86.73 Personal history of transient ischemic attack (TIA), and cerebral infarction without residual deficits
CPT/HCPCS: 74177; Q9967